=== PATIENT | male | born 1970 | race Caucasian/White ===

== ENCOUNTER 2021-02-17 18:18 | Outpatient (REF) | payer OTHER, SELFPAY ==
--- NOTE | ~2021-02-17 | MR_ITS ---
EXAMINATION: MR KNEE WITHOUT CONTRAST, LEFT CLINICAL INFORMATION: Fall. Unable to bear weight. Anterior patellar swelling. Pain and swelling. COMPARISON: None. TECHNIQUE: MRI of the knee without contrast was performed using routine sequences on a high-field scanner. FINDINGS: MENISCI: Medial Meniscus: The meniscal body is medially extruded with mild inner margin blunting/fraying. Intrasubstance degenerative signal. Lateral Meniscus: Minimal focal inner margin fraying of the meniscal body. LIGAMENTS: Cruciate: Intact. Collateral: Intact. EXTENSOR MECHANISM: There is a near-complete tear of the distal quadriceps tendon with a few medial tendon fibers remaining intact. The resultant tendon gap measures up to 3.3 cm in craniocaudal dimension with diffuse thickening and abnormality through the torn tendon fibers. The tear involves approximately 90% of the tendon thickness. There is adjacent soft tissue edema. There is patellar tendon laxity without an acute patellar tendon tear. ARTICULAR CARTILAGE/BONE: Patellofemoral Compartment: Superior patellar median ridge articular cartilage fissuring with minimal subchondral cystic change. Diffuse articular cartilage signal heterogeneity with areas of full-thickness fissuring at the central and medial trochlea where there is mild subchondral cystic change. Small marginal osteophytes. Medial Compartment: Mild weightbearing articular cartilage signal heterogeneity and surface regularly extending to the non-weightbearing medial femoral condyle. Tiny marginal osteophytes. Lateral Compartment: Intact articular cartilage. JOINT FLUID AND BURSAE: Small joint effusion and trace Kingston's cyst. Edema extending superiorly along the fascial planes consistent with Kingston's cyst leak or rupture. Circumferential subcutaneous edema. MR/MR knee LT wo con IMPRESSION: 1. Acute, near-complete tear of the distal quadriceps tendon involving approximately 90% of the tendon thickness. The torn tendon fibers are thickened and irregular with retraction measuring 3.3 cm in clinical dimension. Prominent adjacent soft tissue edema. 2. Medial extrusion of the meniscal body with inner margin blunting/fraying with intrasubstance degenerative signal. 3. Minimal focal inner margin fraying of the lateral meniscal body. 4. Mild patellofemoral and medial compartment osteoarthritis. Small joint effusion and trace Kingston's cyst. Edema extending superiorly consistent with a Kingston's cyst leak or rupture. Circumferential subcutaneous edema.
== END 2021-02-17 18:19 | disposition home or self-care (01) ==
LOC: HO.MRI 18:18
PROVIDERS: Visit Provider Physician Assistant Surgical
DX: S83.92XA Sprain of unspecified site of left knee, initial encounter (principal); W18.30XA Fall on same level, unspecified, initial encounter; Y93.9 Activity, unspecified; Y92.9 Unspecified place or not applicable; Y99.8 Other external cause status
CPT/HCPCS: 73721

== ENCOUNTER 2022-06-23 13:23 | Outpatient (REF) | payer OTHER, SELFPAY ==
--- NOTE | ~2022-06-23 | XR_ITS ---
EXAMINATION: XR KNEE, LEFT XR KNEE AP STANDING CLINICAL INFORMATION: Pain. COMPARISON: None available. TECHNIQUE: Lateral and axial views of the left knee were obtained. AP bilateral standing view of the knees was obtained. FINDINGS: The lateral joint space compartment of the right knee is well-maintained, and the medial joint space compartment shows mild to moderate narrowing, with peripheral osteophyte formation. There is a mild varus configuration. There is chondrocalcinosis. The lateral and medial joint space compartments of the left knee are well-maintained. There is irregularity of the articular surface of the patellofemoral compartment, with an upper pole osteophyte. There is chondrocalcinosis. No fracture, dislocation or joint effusion is seen. There is no foreign body. XR/XR knee standing BI IMPRESSION: 1. There is moderate osteoarthritic change of the medial joint space compartment of the right knee. There is a secondary mild varus configuration. 2. There is moderate osteoarthritic change of the left patellofemoral compartment. 3. No fracture, dislocation or joint effusion is seen bilaterally. 4. There is chondrocalcinosis, which can be associated with CPPD.
--- NOTE | ~2022-06-23 | XR_ITS ---
EXAMINATION: XR KNEE, LEFT XR KNEE AP STANDING CLINICAL INFORMATION: Pain. COMPARISON: None available. TECHNIQUE: Lateral and axial views of the left knee were obtained. AP bilateral standing view of the knees was obtained. FINDINGS: The lateral joint space compartment of the right knee is well-maintained, and the medial joint space compartment shows mild to moderate narrowing, with peripheral osteophyte formation. There is a mild varus configuration. There is chondrocalcinosis. The lateral and medial joint space compartments of the left knee are well-maintained. There is irregularity of the articular surface of the patellofemoral compartment, with an upper pole osteophyte. There is chondrocalcinosis. No fracture, dislocation or joint effusion is seen. There is no foreign body. XR/XR knee LT 2V IMPRESSION: 1. There is moderate osteoarthritic change of the medial joint space compartment of the right knee. There is a secondary mild varus configuration. 2. There is moderate osteoarthritic change of the left patellofemoral compartment. 3. No fracture, dislocation or joint effusion is seen bilaterally. 4. There is chondrocalcinosis, which can be associated with CPPD.
== END 2022-06-23 13:24 | disposition home or self-care (01) ==
LOC: HO.HOSX 13:23
PROVIDERS: Visit Provider Orthopaedic Surgery
DX: S76.112A Strain of left quadriceps muscle, fascia and tendon, initial encounter (principal); X58.XXXA Exposure to other specified factors, initial encounter; Y93.9 Activity, unspecified; Y92.9 Unspecified place or not applicable; Y99.9 Unspecified external cause status
CPT/HCPCS: 73560; 73565

== ENCOUNTER 2023-01-25 08:02 | Outpatient (RCR) | payer OTHER, SELFPAY | END 2023-01-25 17:00 | disposition home or self-care (01) | LOC: HO.WCC 08:02 | PROVIDERS: Visit Provider Surgery | DX: Z09 Encounter for follow-up examination after completed treatment for conditions other than malignant neoplasm (principal); L66.2 Folliculitis decalvans; Z79.2 Long term (current) use of antibiotics | CPT/HCPCS: 99213 ==

== ENCOUNTER 2023-02-14 13:37 | Outpatient (AMB) | payer OTHER, SELFPAY ==
--- NOTE | 2023-02-14 13:41 | A.OFFVIS_ITS ---
Intake Vital Signs 3 02/14/23 13:50 Height 6 ft 1 in Weight 297 lb 2 oz BMI 39.2 Intake Visit Reasons: Right groin wound Intake Note: onset one year, started with the belt buckle was digging into the skin, and has not healed properly since, open/drain at times (bloody), no infections at the time, was seen by the wound center once and refer to us Top Frame Maker Required: No Accompanied by: Self / Same As Patient Allergies No Known Allergies Allergy (Verified 02/14/23 13:49) Medication List - Last Reconciled 02/14/23 by Tomas Jacobo MD cephalexin 500 mg PO Q8H 20 days HPI HPI Comments 2 History of Present Illness0 Details 52-year-old male patient presenting with complaints of a chronic infection involving the belt line of his abdomen. [facility] and placed on several courses of antibiotics. He feels his clothing is rubbing against the site causing more irritation. He presents today to discuss possible excision of this area. He notes that since he switched to softer clothing such as sweats, the lesion is much less painful and in fact seems to be decreasing in size. He recently completed a course of Keflex for 10 days which did help as well. He denies any fever or chills. [facility] Surgical History History of left knee surgery (2020) History of shoulder surgery (1989) History of arthroscopy of left shoulder (2017) Social History Alcohol intake: never Patient Tobacco Use Status: Never used Tobacco Current occupational status: employed Review of Systems Const All systems reviewed & are unremarkable except as noted in HPI and below Denies chills, Denies fever(s), Denies headache(s), Denies poor appetite and Denies weakness ENT Denies headache(s) Card Denies chest pain, Denies irregular heart rhythm, Denies palpitations and Denies dyspnea Resp Denies cough, Denies excessive phlegm production and Denies dyspnea GI Denies abdominal pain, Denies bloating, Denies change in bowel habits, Denies constipation, Denies heartburn, Denies diarrhea, Denies nausea and Denies vomiting Denies difficulty urinating and Denies urinary frequency Musc Denies back pain, Denies muscle weakness and Denies numbness Skin/Breast Denies changing lesions and Denies unusual bruising Neuro Denies headache(s), Denies numbness, Denies paresthesias and Denies weakness Psych Denies anxiety and Denies depression Endo Denies palpitations Arnie/Lymph Denies lymphadenopathy Physical Exam Vital Signs: BMI result Body Mass Index 39.2 Const General: cooperative and no acute distress Nutritional Appearance: well nourished Orientation/consciousness: patient oriented x3 Limitations: no limitations HEENT Head: Yes normocephalic and Yes atraumatic Ears: hearing grossly normal bilaterally Resp Effort & Inspection: normal respiratory effort, no audible wheezes, no cough and no respiratory distress Cardio Jugular venous distension: no JVD GI Inspection: Yes normal to inspection Abdomen image: 2 1. Area of scarring from previous infection measuring approximately 2 cm in diameter. In the subcutaneous tissue a palpable firmness is identified suggestive of chronic infection. No active infection is noted at this time. 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 Site would be amenable to a local excision to help reduce recurrent infections although healing this site may be difficult. After discussion of the procedure, risks and alternatives, he wishes to think about his options. He may wait several months to see if his clothing change continues to improve the wound. He will call me if and when he is ready to proceed with surgery Medications: New 2 cephalexin 500 mg PO Q8H 60 caps 0RF 20 days L66.2 - Folliculitis decalvans Coding Level of Care Code New Pt Level 3 (31861) Diagnoses Folliculitis decalvans L66.2
[2023-02-14 13:50] VITALS: BMI 39.2
== END 2023-02-14 13:57 | disposition home or self-care (01) ==
PROVIDERS: Referring Provider Surgery; Visit Provider Surgery
DX: L66.2 Folliculitis decalvans (principal)
CPT/HCPCS: 99203

== ENCOUNTER → 2023-02-14 13:37 | Outpatient (BNVA) | payer OTHER, SELFPAY | PROVIDERS: Referring Provider Surgery; Visit Provider Surgery ==

== ENCOUNTER → 2024-04-16 08:14 | Outpatient (BNVA) | payer OTHER, SELFPAY | PROVIDERS: Visit Provider Registered Nurse | DX: Z13.89 Encounter for screening for other disorder (principal) | CPT/HCPCS: 99203 ==

== ENCOUNTER → 2024-04-19 09:28 | Outpatient (BNVA) | payer OTHER, SELFPAY | PROVIDERS: Visit Provider Physician Assistant | DX: Z13.89 Encounter for screening for other disorder (principal) | CPT/HCPCS: 99214 ==

== ENCOUNTER → 2024-04-26 14:26 | Outpatient (BNVA) | payer OTHER, SELFPAY | PROVIDERS: Visit Provider Physician Assistant | DX: Z13.89 Encounter for screening for other disorder (principal) | CPT/HCPCS: 99213 ==

== ENCOUNTER → 2024-05-02 12:29 | Outpatient (BNVA) | payer OTHER, SELFPAY | PROVIDERS: Visit Provider Physician Assistant | DX: Z13.89 Encounter for screening for other disorder (principal) | CPT/HCPCS: 73030; 99215 ==

== ENCOUNTER → 2024-05-06 13:06 | Outpatient (BNVA) | payer OTHER, SELFPAY | PROVIDERS: Visit Provider Physician Assistant Medical | DX: Z13.89 Encounter for screening for other disorder (principal) | CPT/HCPCS: 72050; 99214 ==

== ENCOUNTER 2024-05-11 09:45 | Outpatient (REF) | payer OTHER, SELFPAY ==
--- NOTE | ~2024-05-11 | MR_ITS ---
CLINICAL HISTORY: APREHENSION SIGN, UNABLE TO EXTERNALLY ROTATE ABDUCT MR right shoulder without gadolinium Comparison: CR/SR - XR SHOULDER RT MIN 2V - 05/02/24 13:20 EDT Findings: There is motion artifact limiting evaluation. Contusion of the medial humeral head at its articulation with the glenoid fossa. Moderate acromioclavicular and glenohumeral osteoarthritis. Small joint effusion. Partial tear of the supraspinatus tendon at its insertion in the greater tuberosity. Partial tear of the subscapularis tendon at its insertion in the lesser tubercle. Fluid along the long head of the biceps tendon with mild increased T2 signal within the proximal tendon. Thinning of the posterior labrum with intermediate signal in the anterior labrum, likely degenerative. IMPRESSION: Bone contusion of the medial humeral head. Partial tears of the supraspinatus and subscapularis tendons. Biceps tendinopathy. This document has been electronically signed by: Vern Johnston MD on 05/13/2024 19:23:15
--- OUTSIDE RECORDS SUMMARY | 2024-05-11 09:52 | XMS_ITS | Clinical Summary ---
Author Organization [facility] Address [address] [place] [address] Care Team Providers Care Nurse Ldr Name Role Phone Koko Lopez MD Primary Care Provider [phone] Surgical History Surgery Date Site/Laterality Comments SHOULDER ARTHROSCOPY W/ ROTA TOR CUFF REPAIR Left PROCEDURE:SHOULDER ARTHROSCOPY W/ ROTATOR CUFF REPAIR Medical History Medical History Date Comments Depression DX:Depression Obesity DX:Obesity Concussion DX:Concussion BMI 40.0-44.9, adult ([facility]/HCC) 03/07/2017 D X:BMI 40.0-44.9, adult (HCC) Morbid obesity with BMI of 4 0.0-44.9, adult (CMS/HCC) 11/04/2016 DX:Morbid obesity with BMI o f 40.0-44.9, adult (HCC) Family History Medical History Relation Name Comments Thyroid disease Brother Alcohol abuse Father Emphysema Father Lung cancer Father Colon cancer Father's Brother diagnosed a t age 55 Heart disease Maternal Grandmother Atrial fibrillation Mother Breast cancer Mother Heart disease Mother Ovarian cancer Sister Relation Name Status Comments Brother Brother with pr obable thyroid cancer status post radiation treatment developed leiomyosarcoma in the area of the radiation port. Father Father's Brother Maternal Grandfather Maternal Grandmother Mother Paternal Grandfather Paternal Grandmother Sister Alive Social History Tobacco Use Types Packs/Day Years Used Date Smoking Tobacco: Never Smokeless Tobacco: Never Alcohol Use Standard Drinks/Week Comments No 0 (1 standard drink = 0.6 oz pur e alcohol) Sex and Gender Information Value Date Recorded Sex Assigned at Not on file Legal Sex Male 10:26 PM EST Gender Identity Not on file Sexual Orientation Not on file Obstetrics History Plan of Treatment Health Maintenance Due Date Last Done Comments DTaP,Tdap,and Td Vaccines (1 - Tdap) 09/20/1990 Hepatitis B Vaccines (1 of 3 - 19+ 3-dose series) 09/20/1990 Pneumococcal Vaccine: 50+ Ye ars (1 of 1 - PCV) 09/20/2021 Zoster Vaccines (1 of 2) 09/20/2021 Colorectal Cancer Screening: Colonoscopy 01/13/2022 Depression Screening 01/13/2022 HIV Screening 01/13/2022 Hepatitis C Screening 01/13/2022 Social Influencers of Health Screening 01/13/2022 COVID-19 Vaccine (2 - 2023-2 5 season) 2023 03/13/2020 Influenza Vaccine (Season Ended) 2024 11/07/19 21 Cholesterol Screening (Lipid Panel) 02/19/2026 02/19/2021 HIB Vaccines Aged Out No longer eligi ble based on patient's age to complete this topic HPV Vaccines Aged Out No longer eligi ble based on patient's age to complete this topic Hepatitis A Vaccines Aged Out No long er eligible based on patient's age to complete this topic IPV Vaccines Aged Out No longer eligi ble based on patient's age to complete this topic MMR Vaccines Aged Out No longer eligi ble based on patient's age to complete this topic Meningococcal ACWY Vaccine Aged Out N o longer eligible based on patient's age to complete this topic Meningococcal B Vacine Aged Out No lo nger eligible based on patient's age to complete this topic Pneumococcal Vaccine: Pediat rics (0 to 5 Years) and At-Risk Patients (6 to 64 Years) Aged Out No longer eligi ble based on patient's age to complete this topic RSV Immunization Patients Un juanjo 20 months Aged Out No longer eligible b ased on patient's age to complete this topic Varicella Vaccines Aged Out No longer eligible based on patient's age to complete this topic Care Teams Nurse Ldr Relationship Specialty Start Date End Date Koko Lopez MD [address] [id number] PCP - General Internal Medicine 11/04/16
--- OUTSIDE RECORDS SUMMARY | 2024-05-11 09:52 | XMS_ITS | Clinical Summary ---
Author Organization [facility] Address [address] [place] [address] Care Team Providers Care Environmental Director Name Role Phone Koko Lopez MD Primary Care Provider [phone] Allergies No known active allergies Medications Medication Sig Dispensed Refills Start Date End Date Status Sod Picosulfate-Mag Ox-Cit Acd (Clenpiq) 10-3.5-12 MG-GM -GM/160ML SOLN Take 2 Bottles by mouth See admin instructions. 2 Bottle 0 05/26/2020 Active Active Problems Problem Noted Date Diagnosed Date BMI 37.0-37.9, adult 02/19/2021 Morbid obesity 02/18/2021 Anxiety state 02/18/2021 Family hx of colon cancer 05/01/2019 Overview: Last Assessment & Plan: A colonoscopy will be scheduled based on current indication. The indications, prep, alternatives and the procedure were thoroughly explained. There is no contraindication to colonoscopy. All questions were answered. The potential risks including but not limited to bleeding, infection, and perforation were also explained. GERD (gastroesophageal reflux disease) 7 Snoring 11/04/2016 Depression Resolved Problems Problem Noted Date Diagnosed Date Resolved Date BMI 40.0-44.9, adult 03/07/2017 020 Acute pain of left shoulder due to trauma 03/07/2017 07/04/2019 Pre-op exam 03/07/2017 02/12/2019 Morbid obesity with BMI of 40.0-44.9, adult 11/04/2016 07/04/2019 Immunizations Name Administration Dates Next Due Covid-19 (Moderna 12+) 100mcg/0.5mL dosage 03/13 Influenza Quad (Fluarix/Fluz one/FluLaval) 0.5mL (SD-IIV4) 11/06/2020 Family History Medical History Relation Name Comments Thyroid disease Brother Alcohol abuse Father Emphysema Father Lung cancer Father Heart disease Maternal Grandmother Atrial fibrillation Mother Breast cancer Mother Heart disease Mother Colon cancer Paternal Uncle diagnosed at age 55 Ovarian cancer Sister Relation Name Status Comments Brother Brother with pr obable thyroid cancer status post radiation treatment developed leiomyosarcoma in the area of the radiation port. Father Maternal Grandfather Maternal Grandmother Mother Paternal Grandfather Paternal Grandmother Paternal Uncle Sister Alive Social History Tobacco Use Types Packs/Day Years Used Date Smoking Tobacco: Never Smokeless Tobacco: Never Alcohol Use Standard Drinks/Week Comments No 0 (1 standard drink = 0.6 oz pur e alcohol) Sex and Gender Information Value Date Recorded Sex Assigned at Male 01/02/2019 5:10 PM EST Gender Identity Not on file Sexual Orientation Not on file Job Start Date Occupation Industry Not on file Not on file Not on file Last Filed Vital Signs Vital Sign Reading Time Taken Comments Blood Pressure 118/82 02/19/2021 3:37 PM EST Pulse 105 02/19/2021 3:37 PM EST Temperature 36.6 ??C (97.9 ??F) 02/19/2021 3:37 PM ES T Respiratory Rate 16 02/19/2021 3:37 PM EST Oxygen Saturation 98% 02/19/2021 3:37 PM EST Inhaled Oxygen Concentration - - Weight 129.3 kg (285 lb) 02/19/2021 3:37 PM EST Height 185.4 cm (6' 1 ) 02/19/2021 3:37 PM EST Body Mass Index 37.6 02/19/2021 3:37 PM EST Plan of Treatment Health Maintenance Due Date Last Done Comments Hepatitis B Vaccines (1 of 3 - 3-dose series) 1971 Hepatitis C Screening 1971 DTap / Tdap / Td (1 - Tdap) 09/20/1990 Colon Cancer Screening (Colonoscopy) 09/20/2016 Shingrix-Zoster Vaccine (1 of 2) 09/20/2021 BMI Counseling 02/19/2022 02/19/2021, 06/07, 02/12/2019, Additional history exists Depression Screening 02/19/2022 02/19/2021, 02/12/19 20 Preventative Health Evaluation 02/19/2022 02/19/2021, 02/12/2019, 02/12/2019 COVID-19 Vaccine ( season) 2023 03/13/2020 Influenza Vaccine (#1) 2023 11/06/2020 Pneumococcal Vaccine Aged Out No long er eligible based on patient's age to complete this topic RSV Ped < 20 months Aged Out No longe r eligible based on patient's age to complete this topic Care Teams Environmental Director Relationship Specialty Start Date End Date Koko Lopez MD PCP - General Internal Medicine 11/04/16
--- OUTSIDE RECORDS SUMMARY | 2024-05-11 09:52 | XMS_ITS | Clinical Summary ---
Author Organization [facility] Address [address] [place] [id number] Care Team Providers Care Electronics Engineer Name Role Phone Unavailable Primary Care Provider Unavailabl e Allergies No known active allergies Medications Medication Sig Dispensed Refills Start Date End Date Status clindamycin (CLEOCIN) 300 MG capsuleIndications: Panniculitis Take 1 capsule (300 mg total) by mouth 4 (four) times a day. 40 capsule 12/20/2022 Active clindamycin (CLEOCIN T) 1 % external gelIndications:Pann iculitis Apply topically 2 (two) times a day. 60 g 3 08/21/2023 Active Active Problems Problem Noted Date Diagnosed Date Heme positive stool 05/01/2019 Assessment & Plan (05/01/2019 1:47 PM EDT): Pt to go for CBC Egd/colon to be set up at [facility]. Mag cit prep The risks, benefits and alternatives to the procedure were carefully explained to the patient. The risks include but are not limited to perforation, bleeding, infection, respiratory compromise and . All questions were answered. Family hx of colon cancer 05/01/2019 Assessment & Plan (05/01/2019 1:47 PM EDT): A colonoscopy will be scheduled based on current indication. The indications, prep, alternatives and the procedure were thoroughly explained. There is no contraindication to colonoscopy. All questions were answered. The potential risks including but not limited to bleeding, infection, and perforation were also explained. Heartburn 05/01/2019 Assessment & Plan (05/01/2019 1:51 PM EDT): egd set up The risks, benefits and alternatives to the procedure were carefully explained to the patient. The risks include but are not limited to perforation, bleeding, infection, respiratory compromise and . All questions were answered. Family History Medical History Relation Name Comments Sudden Brother SANTIAGO PAREDES Thyroid disease Brother SANTIAGO APREDES COPD Father Donavan Paredes Lung cancer Father Donavan Paredes Breast cancer Mother Roxana Diabetes Mother Roxana Liver cancer Mother Roxana Colon cancer Paternal Uncle Tomas Paredes Ovarian cancer Sister Ketty Relation Name Status Comments Brother SANTIAGO PAREDES Father Donavan Paredes Mother Roxana Paternal Uncle Tomas Paredes Sister Ketty Social History Tobacco Use Types Packs/Day Years Used Date Smoking Tobacco: Never Smokeless Tobacco: Never Alcohol Use Standard Drinks/Week Comments Not Currently 1 (1 standard drink = 0.6 oz pur e alcohol) Maybe 2 Guinness a month [facility] Utilities Answer Date Recorded In the past 12 months has e electric, gas, oil, or water company threatened to shut off services in your home? No 12/19/2022 Social Connection and Isolation Panel [NHANES] A nswer Date Recorded In a typical week, how many times do you talk on the phone with family, friends, or neighbors? Three times a week 12/19/2022 How often do you get togethe r with friends or relatives? Once a week 12/19/2022 How often do you attend chur ch or druze services? Never 12/19/2022 Do you belong to any clubs o r organizations such as catholic groups, unions, fraternal or athletic groups, or school groups? No 12/19/2022 How often do you attend meet ings of the clubs or organizations you belong to? Never 12/19/2022 Are you , , di vorced, , never , or living with a partner? 12/19/2022 AUDIT-C Answer Date Recorded Q1: How often do you have a drink containing alc ohol? Monthly or less 12/19/2022 Q2: How many drinks containi ng alcohol do you have on a typical day when you are drinking? 1 or 2 12/19/2022 Q3: How often do you have si x or more drinks on one occasion? Never 12/19/2022 Overall Financial Resource Strain (CARDIA) Answe r Date Recorded How hard is it for you to pa y for the very basics like food, housing, medical care, and heating? Not very hard 12/19/2022 PHQ-2 Answer Date Recorded PHQ-2 Total Score 0 12/20/2022 [facility] - Occupational Stress Questionnaire Answer Date Recorded Do you feel stress - tense, restless, nervous, or anxious, or unable to sleep at night because your mind is troubled all the time - these days? To some extent 12/19/2022 Hunger Vital Sign Answer Date Recorded Within the past 12 months, y ou worried that your food would run out before you got the money to buy more. Sometimes true Within the past 12 months, t he food you bought just didn't last and you didn't have money to get more. Sometimes true PRAPARE - Transportation Answer Date Re corded In the past 12 months, has l ack of transportation kept you from medical appointments or from getting medications? No 12/07 In the past 12 months, has l ack of transportation kept you from meetings, work, or from getting things needed for daily living? No 12/19/2022 Physical Activity Answer Date Recorded On average, how many days pe r week do you engage in moderate to strenuous exercise (like a brisk walk)? 7 12/19/2022 On average, how many minutes do you exercise per day at this level? 30 12/19/2022 Education Answer Date Recorded What is the highest level of school you have completed or the highest degree you have received? Associate degree: occupational, technical, or vocational program 12/19/2022 Sex and Gender Information Value Date Recorded Sex Assigned at Male 12/20/2022 3:13 PM EST Gender Identity Male 12/20/2022 3:13 PM EST Sexual Orientation Other 12/20/2022 3: 13 PM EST Last Filed Vital Signs Vital Sign Reading Time Taken Comments Blood Pressure 140/90 12/20/2022 3:29 PM EST Pulse 85 12/20/2022 3:29 PM EST Temperature - - Respiratory Rate 18 12/20/2022 3:29 PM EST Oxygen Saturation 97% 12/20/2022 3:29 PM EST Inhaled Oxygen Concentration - - Weight 132 kg (290 lb 3.2 oz) 12/20/2022 3:29 PM EST Height 182.9 cm (6') 12/20/2022 3:29 PM EST Body Mass Index 39.36 12/20/2022 3:29 PM EST Plan of Treatment Health Maintenance Due Date Last Done Comments Hepatitis C Virus Screening 1970 HIV Screening 09/20/1984 DTaP/Tdap/Td Vaccines (1 - Tdap) 09/20/1990 Hepatitis B Vaccines (1 of 3 - 19+ 3-dose series) 09/20/1990 Colonoscopy 09/20/2016 Pneumococcal Vaccines 50+ (1 of 1 - PCV) 09/20/2021 Zoster (Shingles) Vaccine (1 of 2) 09/20/2021 Influenza Vaccine 09/07/2023 11/06/2020, 01/05/2020 COVID-19 Vaccine ( season) 10/08/202306/2020, 02/11/2020
--- OUTSIDE RECORDS SUMMARY | 2024-05-11 09:52 | XMS_ITS | Encounter Summary ---
Author Organization [facility] Address [address] [place], [place] [id number] Care Team Providers Care Senior Producer Name Role Phone Vera Ndiaye APRN Primary Care Provider [phone] Koko Lopez MD Primary Care Provider Lj Velazquez DO Primary Care Provider [phone] Encounter Details Date Type Department Care Team (Late st Contact Info) Description 02/19/2019 Scanned Document [facility] [address] [place] [address] [phone] Provider, External, [address] [place] [address] Social History Tobacco Use Types Packs/Day Years Used Date Smoking Tobacco: Never Assessed Sex and Gender Information Value Date Recorded Sex Assigned at Male 12/20/2022 3:13 PM EST Gender Identity Male 12/20/2022 3:13 PM EST Sexual Orientation Other 12/20/2022 3: 13 PM EST documented as of this encounter Plan of Treatment Not on file documented as of this encounter Visit Diagnoses Not on filedocumented in this encounter Care Teams Senior Producer Relationship Specialty Start Date End Date Vera Ndiaye APRN PCP - General Family Medicine 02/15/19 04/03/19 Koko Lopez MD PCP - General Internal Medicine 04/04/19 12/19/22 Lj Velazquez DO PCP - General Internal Medicine 12/20/22 04/22/24 documented as of this encounter
--- OUTSIDE RECORDS SUMMARY | 2024-05-11 09:52 | XMS_ITS ---
Author Name [facility] Organization Unknown Encounters Encounter Type Encounter Reason Primary Diagnosis Location Date Ambulatory Panniculitis, unspecified Panniculitis, unspecified [facility] 12/20/2022 Care Team Organization Name Specialty Phone Email Start Date End [facility] [place] [email or web address] 12/20/2022 12/20/2022 [facility] 12/20/20222024 [facility] Lj Velazquez Primary Care 12/20/20222023
== END 2024-05-11 09:46 | disposition home or self-care (01) ==
LOC: HO.MRI 09:45
PROVIDERS: Visit Provider Physician Assistant
DX: R20.2 Paresthesia of skin (principal)
CPT/HCPCS: 73221

== ENCOUNTER → 2024-05-11 10:04 | Outpatient (BNV) | payer OTHER, SELFPAY | PROVIDERS: Visit Provider Radiology Diagnostic Radiology | DX: M75.101 Unspecified rotator cuff tear or rupture of right shoulder, not specified as traumatic (principal); M75.21 Bicipital tendinitis, right shoulder | CPT/HCPCS: 73221 ==

== ENCOUNTER → 2024-05-13 13:13 | Outpatient (BNVA) | payer OTHER, SELFPAY | PROVIDERS: Visit Provider Physician Assistant Medical | DX: Z13.89 Encounter for screening for other disorder (principal) | CPT/HCPCS: 99213 ==

== ENCOUNTER 2024-05-21 13:48 | Outpatient (AMB) | payer OTHER, SELFPAY ==
--- NOTE | 2024-05-21 13:50 | A.OFFVIS_ITS ---
Vital Signs 05/21/24 13:58 Height 6 ft Weight 240 lb BMI 32.5 Intake Visit Reasons: NewProb-Right shoulder injury-DOI 05/02/24-WC Intake Note: Miguel is a 53 year old right hand dominant male who presents today for evaluation of a work-related injury to his right shoulder. 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 He has been doing stretching exercises on his own which have helped somewhat with his range of motion but not his discomfort. The patient reports increased pain when wearing a lead apron at work. He has not yet been to formal physical therapy. He has not had a cortisone injection. He recently had an MRI of his right shoulder. Hx: Allergies No Known Allergies Allergy (Verified 05/21/24 13:58) Medication List - Last Reconciled 05/21/24 by Alon Perez MD cephalexin 500 mg PO Q8H 20 days cyclobenzaprine 10 mg PO BEDTIME PRN prednisone 10 mg PO DIRECTED 10 days PFSH Surgical History History of left knee surgery (2020) History of shoulder surgery (1989) History of arthroscopy of left shoulder (2017) Social History Alcohol intake: never Patient Tobacco Use Status: Never used Tobacco Current occupational status: employed Physical Exam Vital Signs: BMI result Body Mass Index 32.5 Const Other: Well-nourished well-developed very friendly male awake alert and oriented x3 in no acute distress Extrem Other: Right shoulder examination shows decreased active and passive range of motion when compared to his left shoulder, 4+ out of 5 strength with supraspinatus testing, positive impingement signs, tenderness over his acromioclavicular joint, no instability Results Reviewed Results Reviewed: MRI of the patient's right shoulder shows mild to moderate glenohumeral joint degenerative changes, a type 2 acromion, severe acromioclavicular joint degenerative changes, signal change within the supraspinatus tendon due to rotator cuff tendinosis versus a small partial-thickness rotator cuff tear Assessment & Plan Assessment & Plan (1) Impingement of right shoulder: Code(s): M25.811 - Other specified joint disorders, right shoulder Category: Medical Plan Mr. Ruiz presents with right shoulder pain due to impingement syndrome, acromioclavicular joint arthritis, glenohumeral joint arthritis, adhesive capsulitis and rotator cuff tendinosis versus a small partial-thickness rotator cuff tear. I had a lengthy discussion with the patient regarding the treatment options. He wishes to hold off on surgery if at all possible. I agree with this plan. I did give the patient a prescription to go to formal physical therapy. I also recommended that he not wear a let a lead apron at work until his shoulder symptoms improve and allow him to do so comfortably. He will follow up with me on an as-needed basis should his symptoms not plateau at an unacceptable level over the next few months. If he fails formal physical therapy we will further discuss the risks and benefits of cortisone injection therapy versus arthroscopic surgery. I spent 20 minutes in reviewing the patient's records and imaging studies, seeing the patient and documenting in the medical record. Orders: Orders PT Evaluation and Treatment 05/21/24 M25.811 - Other specified joint disorders, right shoulder Coding Level of Care Code New Pt Level 3 (82277) Complex EM visit Add On G2211 Diagnoses Impingement of right shoulder M25.811
[2024-05-21 13:58] VITALS: BMI 32.5
--- OUTSIDE RECORDS SUMMARY | 2024-05-21 16:58 | XMS_ITS | Clinical Summary ---
Author Organization [facility] Address [address] [place] [address] Care Team Providers Care Motion Picture Set Up Worker Name Role Phone Koko Lopez MD Primary Care Provider [phone] Allergies No known active allergies Medications Medication [...] age to complete this topic Care Teams Motion Picture Set Up Worker Relationship Specialty Start Date End Date Koko Lopez MD PCP - General Internal Medicine 11/04/16
--- OUTSIDE RECORDS SUMMARY | 2024-05-21 16:58 | XMS_ITS | Encounter Summary ---
Author Organization [facility] Address [address] [place], [place] [address] Care Team Providers Care Recreational Vehicle Repairer Name Role Phone Vera Ndiaye APRN Primary Care Provider [phone] Koko Lopez MD Primary Care Provider Lj Velazquez DO Primary Care Provider [phone] Encounter Details Date Type Department Care Team (Late st Contact Info) Description 02/19/2019 Scanned Document [facility] [address] [place] [address] [phone] Provider, External, [address] [place] [address] Social History Tobacco Use Types Packs/Day Years [...] on filedocumented in this encounter Care Teams Recreational Vehicle Repairer Relationship Specialty Start Date End Date eVra Ndiaye APRN PCP - General Family Medicine 02/15/19 04/03/19 Koko Lopez MD PCP - General Internal Medicine 04/04/19 12/19/22 Lj Velazquez DO PCP - General Internal Medicine 12/20/22 04/22/24 documented as of this encounter
--- OUTSIDE RECORDS SUMMARY | 2024-05-21 16:58 | XMS_ITS | Clinical Summary ---
Author Organization [facility] Address [address] [place] [address] Care Team Providers Care Storeroom Clerk Name Role Phone Koko Lopez MD Primary Care Provider [phone] Surgical History Surgery Date Site/Laterality Comments SHOULDER ARTHROSCOPY W/ ROTA TOR CUFF REPAIR Left PROCEDURE:SHOULDER ARTHROSCOPY W/ ROTATOR CUFF REPAIR Medical History Medical History Date Comments Depression DX:Depression Obesity DX:Obesity Concussion DX:Concussion BMI 40.0-44.9, adult (CMS/HC C V24, CMS/HCC V28) 03/07/2017 DX:BMI 40.0-44.9, adult (HCC ) Morbid obesity with BMI of 4 0.0-44.9, adult (CMS/HCC V24, CMS/HCC V28) 11/04/2016 DX:Morbid obesity wit h BMI of 40.0-44.9, adult (HCC) Family History Medical History [...] age to complete this topic Meningococcal B Vaccine Aged Out No l onger eligible based on patient's age to complete [...] age to complete this topic Care Teams Storeroom Clerk Relationship Specialty Start Date End Date Koko Lopez MD [address] [id number] PCP - General Internal Medicine 11/04/16
--- OUTSIDE RECORDS SUMMARY | 2024-05-21 16:59 | XMS_ITS | Clinical Summary ---
Author Organization [facility] Address [address] [place] [id number] Care Team Providers Care Rope Coiling Machine Operator Name Role Phone Unavailable Primary Care Provider [...] CBC Egd/colon to be set up at [facility]. Mag cit prep The risks, benefits [...] Brother SANTIAGO PAREDES Thyroid disease Brother SANTIAGO PAREDES COPD Father Donavan Paredes Lung cancer Father [...] e alcohol) Maybe 2 Guinness a month [facility] Utilities Answer Date Recorded In the past [...] often do you attend chur ch or anglican services? Never 12/19/2022 Do you belong to any clubs o r organizations such as latter day groups, unions, fraternal or athletic groups, or [...] Date Recorded PHQ-2 Total Score 0 12/20/2022 [facility] - Occupational Stress Questionnaire Answer Date Recorded [...]
== END 2024-05-21 14:18 | disposition home or self-care (01) ==
LOC: HO.HOS 13:48
PROVIDERS: Visit Provider Orthopaedic Surgery
DX: M25.811 Other specified joint disorders, right shoulder (principal)
CPT/HCPCS: 99213; G2211

== ENCOUNTER → 2024-05-21 13:48 | Outpatient (BNVA) | payer OTHER, SELFPAY | PROVIDERS: Visit Provider Orthopaedic Surgery | DX: M25.811 Other specified joint disorders, right shoulder (principal) | CPT/HCPCS: 99212 ==

== ENCOUNTER → 2024-06-14 13:15 | Outpatient (BNVA) | payer OTHER, SELFPAY | PROVIDERS: Visit Provider Physician Assistant Medical | DX: Z13.89 Encounter for screening for other disorder (principal) | CPT/HCPCS: 99213 ==

== ENCOUNTER 2024-07-02 14:39 | Outpatient (AMB) | payer OTHER, SELFPAY ==
--- OUTSIDE RECORDS SUMMARY | 2024-07-02 14:42 | XMS_ITS | Encounter Summary ---
Author Organization [facility] Address [address] [place] [address] Care Team Providers Care Acid Correction Hand Name Role Phone Vera Ndiaye APRN Primary Care Provider [phone] Koko Lopez MD Primary Care Provider [phone] Lj Velazquez DO Primary Care Provider Unav ailable Encounter Details Date Type Department Care Team (Late st Contact Info) Description 02/19/2019 Scanned Document [facility] [address] [facility] [address] [place] [address] Provider, External, [address] [place] [address] Social History Tobacco Use Types Packs/Day Years Used Date Smoking Tobacco: Never Assessed Sex and Gender Information Value Date Recorded Sex Assigned at Male 12/20/2022 3:13 PM EST Legal Sex Male 3:37 PM EST Gender Identity Male 12/20/2022 3:13 PM EST Sexual Orientation Other 12/20/2022 3: 13 PM EST documented as of this encounter Plan of Treatment Not on file documented as of this encounter Visit Diagnoses Not on filedocumented in this encounter Care Teams Acid Correction Hand Relationship Specialty Start Date End Date Vera Ndiaye APRN PCP - General Family Medicine 02/15/19 04/03/19 Koko Lopez MD PCP - General Internal Medicine 04/04/19 12/19/22 Lj Velazquez DO PCP - General Internal Medicine 12/20/22 04/22/24 documented as of this encounter
--- NOTE | 2024-07-02 14:43 | A.OFFVIS_ITS ---
Vital Signs 07/02/24 14:49 Height 6 ft Weight 240 lb BMI 32.5 Intake Visit Reasons: WC f/u Right shoulder injury-DOI 05/02/24 Intake Note: Miguel is a 53 year old right hand dominant male who presents today for evaluation of a work-related injury to his right shoulder, DOI: 05/02/24. At the last visit the patient was referred to physical therapy. Patient reports today physical therapy has been helping significantly with his range of motion and discomfort. The patient states that he would like to return to full duty at work on 07/08/2024. Allergies No Known Allergies Allergy (Verified 07/02/24 14:49) Medication List - Last Reviewed 07/02/24 by LASHAE Allen cyclobenzaprine 10 mg PO BEDTIME PRN PFSH Surgical History History of left knee surgery (2020) History of shoulder surgery (1989) History of arthroscopy of left shoulder (2017) Social History (Updated 07/02/24 @ 14:50 by LASHAE Allen) Alcohol intake: never Patient Tobacco Use Status: Never used Tobacco Current occupational status: employed Current occupation: [employer] employee Physical Exam Vital Signs: BMI result Body Mass Index 32.5 Extrem Other: Right shoulder examination shows slightly decreased range of motion when compared to his left shoulder, 4+ out of 5 strength with supraspinatus testing, no instability, positive impingement signs Assessment & Plan Assessment & Plan (1) Impingement of right shoulder: Code(s): M25.811 - Other specified joint disorders, right shoulder Category: Medical Plan Mr. Ruiz presents with intermittent right shoulder discomfort due to impingement syndrome and glenohumeral joint arthritis. At this point the patient's symptoms are continuing to improve with physical therapy. We will hold off on a cortisone injection. He is cleared to return to full duty work on 07/08/2024. He will follow up with me on an as-needed basis should his symptoms not plateau at an unacceptable level over the next few months. I spent 21 minutes in reviewing the patient's records and imaging studies, seeing the patient and documenting in the medical record. Orders: Orders PT Evaluation and Treatment Today M25.811 - Other specified joint disorders, right shoulder Coding Level of Care Code Est Pt Level 3 (84047) Complex EM visit Add On G2211 Diagnoses Impingement of right shoulder M25.811
[2024-07-02 14:49] VITALS: BMI 32.5
== END 2024-07-02 14:56 | disposition home or self-care (01) ==
LOC: HO.HOS 14:40
PROVIDERS: Visit Provider Orthopaedic Surgery
DX: M25.811 Other specified joint disorders, right shoulder (principal)
CPT/HCPCS: 99213; G2211

== ENCOUNTER → 2024-07-02 14:39 | Outpatient (BNVA) | payer OTHER, SELFPAY | PROVIDERS: Visit Provider Orthopaedic Surgery | DX: M25.811 Other specified joint disorders, right shoulder (principal); Z04.2 Encounter for examination and observation following work accident | CPT/HCPCS: 99212 ==

== ENCOUNTER 2024-07-30 14:15 | Outpatient (RCR) | payer OTHER, SELFPAY ==
--- NOTE | 2024-05-28 16:48 | MHC.PT.EP ---
[facility] [place] [facility] [place] [facility] [place] Office [address] Lux Cardona [address] [phone] F: [phone] F: [phone] F: [phone] F: [phone] Physical Therapy Plan of Care Date of Evaluation: 05/28/24 Date of Surgery: ? Diagnosis: Assessment: Pt IS 53 YO M TO PT FROM [place] (DR DE SOUZA) WITH R SHLDER IMPINGEMENT. PER MRI HAS PARTIAL TEAR IN SUPRASPINATUS TENDON AND SUBSCAPULARIS TENDON, LABRAL THINNING, AND AC JT ARTHRITIS. PRESENTS WITH LIMITED ROM AND STRENGTH IN R SHLDER WITH PAIN LIMITING ADLS. Pt WORKS AT [employer] [place]. IS WORKING MODIFIED DUTY. SHOULD BENEFIT FROM PT TO ADDRESS THESE ISSUES IS TO SEE HOW PT HELPS PRIOR TO GOING BACK TO [facility]TH[facility] (NO APPT SCHEDULED YET) Frequency and Duration: The patient will be seen 2X/WK X 3-4 WKS Short Term Goals: 1. INCREASED AWARNESS SHLDER CARE AND POSTURE 2. IMPROVED SLEEP 3. I KT (?FRIEND OR CO-WORKER) IF INDICATED 4. INCREASED ABILITY TO USE R UE FOR LIFTING Photography Spotter Goals: 1. INCREASED R SHLDER ROM AT LEAST 20 DEGREES T/O 2. DECREASED R SHLDER PAIN AT LEAST 50% WITH ADLS 3. I HEP WITH DC EX PLAN 4. RTW NORMAL DUTY Treatment Plan: Modalities to reduce pain, spasms and effusion. Manual therapy to restore motion and function. Therapeutic exercise to improve strength and flexibility. Neuromuscular re-education for posture and balance. Therapeutic activities to return to functional activities of daily living. Electronically signed by: MARLY LOPEZ PT Please sign and return to therapist. Thank you for your referral.
--- NOTE | 2024-09-23 12:07 | MHC.PT.DC ---
[facility] [place] [facility] [place] Office [place] Office [address] [place] [address] [phone] F: [phone] F: [phone] F: [phone] F: [phone] Physical Therapy Discharge Report Diagnosis: SHOULDER IMPINGEMENT R Date of Surgery: ? Date of Evaluation: 05/28/24 Date of Discharge: 09/23/24 Treatments to Date: 8 Cancellations to Date: No Shows to Date: Discharge Status: Improved Function Independent with HEP Patient Elected to Stop Discharge Summary: PER ASSESSMENT FROM LAST APPT BY ALISIA SARGENT DELIVERY CREW WORKER CREPITUS WITH >90* FLEX w/1# wt but RS and foam ball was ok. Pt THEN CANCELLED LAST SCHEDULED APPT WITHOUT FURTHER APPTS SCHEDULED Electronically signed by: MARLY LOPEZ PT Please sign and return to therapist. Thank you for your referral.
== END 2024-09-23 12:08 | disposition home or self-care (01) ==
LOC: HO.PT 14:15
PROVIDERS: Visit Provider Orthopaedic Surgery
DX: M25.811 Other specified joint disorders, right shoulder (principal)
CPT/HCPCS: 97035; 97110; 97140; 97162; 97530; 97535